=== PATIENT | male | born 1995 | race Caucasian/White ===

== ENCOUNTER 2016-12-26 12:42 | Emergency (ER) | payer BC ==
[~2016-12-26 12:42] MED LIST: AUGMENTIN PO; HYDROCODON-ACE1 EAC7 PO; KEFLEX500 M2 PO; NO MEDICATIONS; PHENERGAN25 MG PO; VOLTAREN50 MG PO; VOLTAREN75 MG PO; ZYRTEC5 MG PO
== END 2016-12-26 13:50 | disposition home or self-care (01) ==
LOC: SED 12:42
DX: R11.2 Nausea with vomiting, unspecified (principal); R19.7 Diarrhea, unspecified; Z88.2 Allergy status to sulfonamides
CPT/HCPCS: 99282